=== PATIENT | female | born 1950 | race Caucasian/White ===

== ENCOUNTER 2022-10-07 09:37 | Day surgery (SDC) | payer MEDICARE, OTHER, SELFPAY ==
[2022-10-01 09:59] VITALS: BMI 25.1
--- NOTE | 2022-10-03 13:00 | MHC.SHP ---
Pre-Procedural Eval Section A Date of Service: 10/03/22 The patient is an INPATIENT: No Changes since office visit: No Cold of Flu in the past 2 weeks, No New Medical Problems, No Changes in Medication and No Patient answered all questions The History & Physical has been completed within 30 days and I have reviewed it.: Yes Section B Chief Complaint: Age-related nuclear cataract, right eye Allergies: Allergies Allergy/AdvReac Type Severity Reaction Status Date / Time No Known Allergies Allergy Unverified 04/20/20 15:43 [No Known Allergies*] Plan Diagnosis/Plan: Unchanged I have reviewed the history and physical and performed a pertinent physical examination on my patient. No changes have occurred unless specified. Time Spent With Patient Time: Total time managing care of this patient today ____ minutes.
--- NOTE | 2022-10-04 12:06 | HO.ANESPROP2 ---
Documented by User: Barbara Monique NP 10/04/22 12:11 HPI - Anesthesia Eval Consult details Narrative: 72yo F for Right Cataract Extraction IOL Insertion PCP cleared No previous cataract on record PMFSH Past Medical History Medical History COPD (chronic obstructive pulmonary disease) HTN (hypertension) Osteoporosis Paralysis of right hand Seizures Thrombocytopenia Surgical History Surgical History History of open reduction and internal fixation (ORIF) procedure Hx of cystoscopy Social History Social History Patient Tobacco Use Status: Former Tobacco user Quit Date: 2015 Tobacco use type: Cigarette Advance Directives: No Advance Directives Information Provided: Yes Meds Allergies Allergy/AdvReac Type Severity Reaction Status Date / Time No Known Allergies Allergy Unverified 04/20/20 15:43 [No Known Allergies*] Home Medications Medication Instructions Recorded Confirmed Last Taken Type albuterol sulfate 90 mcg/actuation 1 puff inhalation QID PRN Wheezing 10/01/22 10/07/22 Unknown History aerosol inhaler (Ventolin HFA) alendronate 70 mg tablet 1 tab PO QWEEK 10/01/22 10/07/22 Unknown History amlodipine 5 mg tablet 1 tab PO DAILY 10/01/22 10/07/22 Unknown History cholecalciferol (vitamin D3) 25 25 mcg PO DAILY 10/01/22 10/07/22 Unknown History mcg (1,000 unit) capsule (Vitamin D3) ibuprofen 200 mg tablet 200 mg PO Q8H PRN Pain 10/01/22 10/07/22 Unknown History phenobarbital 30 mg tablet 1 tab PO TID 10/01/22 10/07/22 Unknown History phenytoin sodium extended 100 mg 300 mg PO Q2D 10/01/22 10/01/22 Unknown History capsule tiotropium bromide 18 mcg capsule 1 cap inhalation DAILY 10/01/22 10/01/22 Unknown History with inhalation device (Spiriva with HandiHaler) Exam Exam Date and Time: October 04, 2022 1206 Height,Weight and Vital Signs: Height 5 ft 6.5 in Weight 71.7 kg Assessment and Plan Assessment Anesthesia Assessment: Chart Reviewed Documented by User: Rosi Gardner MD 10/07/22 11:33 PMFSH Past Medical History Medical History COPD (chronic obstructive pulmonary disease) HTN (hypertension) Osteoporosis Paralysis of right hand Seizures Thrombocytopenia Family History Family history of problems with anesthesia: No Surgical History Surgical History History of open reduction and internal fixation (ORIF) procedure Hx of cystoscopy History of Problems with Anesthesia: No Social History Social History Patient Tobacco Use Status: Former Tobacco user Quit Date: 2015 Tobacco use type: Cigarette Advance Directives: No Advance Directives Information Provided: Yes Meds Allergies Allergy/AdvReac Type Severity Reaction Status Date / Time No Known Allergies Allergy Unverified 04/20/20 15:43 [No Known Allergies*] Home Medications Medication Instructions Recorded Confirmed Last Taken Type albuterol sulfate 90 mcg/actuation 1 puff inhalation QID PRN Wheezing 10/01/22 10/07/22 Unknown History aerosol inhaler (Ventolin HFA) alendronate 70 mg tablet 1 tab PO QWEEK 10/01/22 10/07/22 Unknown History amlodipine 5 mg tablet 1 tab PO DAILY 10/01/22 10/07/22 Unknown History cholecalciferol (vitamin D3) 25 25 mcg PO DAILY 10/01/22 10/07/22 Unknown History mcg (1,000 unit) capsule (Vitamin D3) ibuprofen 200 mg tablet 200 mg PO Q8H PRN Pain 10/01/22 10/07/22 Unknown History phenobarbital 30 mg tablet 1 tab PO TID 10/01/22 10/07/22 Unknown History phenytoin sodium extended 100 mg 300 mg PO Q2D 10/01/22 10/01/22 Unknown History capsule tiotropium bromide 18 mcg capsule 1 cap inhalation DAILY 02/28/23 02/28/23 Unknown History with inhalation device (Spiriva with HandiHaler) Exam Height,Weight and Vital Signs: Height 5 ft 6.5 in Weight 71.7 kg Vital Signs Temp Pulse Resp BP Pulse Ox O2 Del Method 10/07/22 11:13 98.3 F 73 18 150/62 H 96 Room Air Airway Mallampati Class: II TM Dist: >3cm Neck ROM: Full Loose/Missing/Broken Teeth: Yes (Several missing teeth) Heart: RRR Lungs: CTAB Assessment and Plan Assessment Anesthesia Assessment: Anesthesia Plan Discussed Final Anesthetic Review Family History of Problems with Anesthesia: No History of Problems with Anesthesia: No NPO: Yes ASA Class: III Final Preanesthetic Review: No Changes in Pt Med Stat, Meds/Allgs Chart Reviewed, Consent Obtained/Reviewed and Anes Risks/Benef Reviewed Patient Risk: Intermediate Procedure Risk: Low Assessment/Block/Sedation in SS: Assess/Block/Sedation-SS Anesthetic Plan Anesthetic Plan: MAC: Disposition: Standard PACU
[2022-10-07 11:04] VITALS: BMI 24.2
[2022-10-07 11:13] VITALS: BP 150/62; PULSE 73; RESP 18; TEMP 36.8; O2SAT 96
[2022-10-07] MEDS: Lactated Ringers 500 ML 50 ML IV (11:28)
[2022-10-07] MEDS: Tropicamide 1 % Ophth Sol 3 ML BTL 1 DROP EYE-RIGHT ×3 (11:29→11:35)
[2022-10-07] MEDS: Phenylephrine HCL 2.5% Oph SoL 2 ML BOTTLE 1 DROP EYE-RIGHT ×3 (11:29→11:36)
[2022-10-07] MEDS: Tetracaine HCl/PF 0.5% Oph Sol 4 ML DROPS 1 DROP EYE-RIGHT (11:29)
[2022-10-07] MEDS: Ketorolac Tromethamine 0.5% Op 5 ML DROPS 1 DROP EYE-RIGHT ×3 (11:29→11:36)
[2022-10-07] MEDS: Cyclopentolate 1 % Ophth Sol 2 ML DRPBTL 1 DROP EYE-RIGHT ×3 (11:29→11:36)
--- NOTE | 2022-10-07 12:38 | HO.PNOPHT ---
Ophthalmology Procedure Procedure Date of Service: 10/07/22 Ophthalmology Viscoelastic: Healon Duet Dual Pack Pro Ophthalmology Lenses: TECNIS [id number] (19.5) Procedure Notes: PREOPERATIVE DIAGNOSIS: Decreased visual acuity right eye secondary to cataract POSTOPERATIVE DIAGNOSIS: Same PROCEDURE: Right cataract extraction with intraocular lens insertion SURGEON: Reed Velasquez M.D. ANESTHESIA: Topical/MAC ESTIMATED BLOOD LOSS: None COMPLICATIONS: None After obtaining informed consent, the patient was brought to the operating room suite and placed in the supine position. After adequate sedation per anesthesia, topical drops of Tetracaine were given to the right eye. The eye was then prepped and draped in the usual sterile fashion. The operating room microscope was then positioned over the operative eye and a lid speculum placed. A paracentesis was created. Viscoelastic was then instilled into the anterior chamber. A three plane incision was then created temporally, utilizing a 2.85 mm keratome. Capsulotomy forceps were then utilized to create a circular tear capsulotomy. Hydrodissection and hydrodelineation were carried out until adequate mobilization of the nucleus occurred. Phacoemulsification was then utilized to remove the dense central nucleus followed by removal of the cortical material utilizing the automated aspiration irrigation unit. Viscoelastic was instilled into the posterior capsular bag followed by placement of a posterior chamber intraocular lens without difficulty. The residual Viscoelastic was then removed utilizing the automated IA machine. The wound was checked and found to be watertight. The patient tolerated the procedure well and the lid speculum was removed. Intracameral injection of Vigamox 0.1 mL followed by a subtenon injection of Kenalog-40 0.2 mL were administered. The patient will be seen in the a.m.
[2022-10-07 13:04] VITALS: BP 141/83; PULSE 66; RESP 16; TEMP 36.5; O2SAT 96
== END 2022-10-07 13:20 | disposition home or self-care (01) ==
PROVIDERS: PCP Internal Medicine; Visit Provider Ophthalmology
PROC: (CPT 66985; principal; 2022-10-07 13:40)
DX: H25.11 Age-related nuclear cataract, right eye (principal); H52.4 Presbyopia; H18.413 Arcus senilis, bilateral; I10 Essential (primary) hypertension; J44.9 Chronic obstructive pulmonary disease, unspecified; R56.9 Unspecified convulsions; Z87.820 Personal history of traumatic brain injury; G83.21 Monoplegia of upper limb affecting right dominant side; Z79.51 Long term (current) use of inhaled steroids; Z79.1 Long term (current) use of non-steroidal anti-inflammatories (NSAID); Z79.899 Other long term (current) drug therapy; Z87.891 Personal history of nicotine dependence
CPT/HCPCS: 66984; J2250; J3010; J3301; V2632